=== PATIENT | female | born 1985 | race Caucasian/White ===

== ENCOUNTER → 2017-07-21 | Outpatient (CLI) | payer MEDICAID | LOC: ROC 09:45 | PROVIDERS: ATTEND Radiology Radiation Oncology | DX: Z02.9 Encounter for administrative examinations, unspecified (principal) ==

== ENCOUNTER → 2017-08-25 | Outpatient (CLI) | payer MEDICAID | END | disposition home or self-care (01) | LOC: ROC 08:04 | PROVIDERS: ATTEND Radiology Radiation Oncology | DX: C70.0 Malignant neoplasm of cerebral meninges (principal) | CPT/HCPCS: 99213; G0463 ==